=== PATIENT | female | born 1980 | race Caucasian/White ===

== ENCOUNTER 2022-03-08 11:32 | Emergency (ER) | payer BC, OTHER ==
[~2022-03-08] VITALS: Ht 165 cm; Wt 78.0 kg
[2022-03-08 12:11] LABS: CLARITY,URINE CLOUDY; COLOR,URINE YELLOW; GLUCOSE, URINE (UA) NEGATIVE (NEGATIVE); KETONES,URINE 3+ (NEGATIVE); LEUKOCYTE ESTERASE ,URINE TRACE (NEGATIVE); NITRITE,URINE NEGATIVE (NEGATIVE); PROTEIN,URINE 2+ (NEGATIVE)
[2022-03-08 12:13] LABS: BASOPHILS % (AUTO) 0 % (0-10); EOSINOPHILS % (AUTO) 0 % (0-10); HEMATOCRIT 37 % (35-52); HEMOGLOBIN 12.3 g/dL (11.5-16.0); LYMPHOCYTES # (AUTO) 1.7 10^3/uL (1.0-4.0); LYMPHOCYTES % (AUTO) 20 % (12-44); MEAN CORPUSCULAR HEMOGLOBIN 27 pg (25-34); MEAN CORPUSCULAR HGB CONC 34 g/dL (32-36); MEAN CORPUSCULAR VOLUME 80 fL (80-99); MEAN PLATELET VOLUME 10.8 fL (9.0-12.2); MONOCYTES # (AUTO) 0.4 10^3/uL (0.0-1.0); MONOCYTES % (AUTO) 5 % (0-12); NEUTROPHILS # (AUTO) 6.1 10^3/uL (1.8-7.8); NEUTROPHILS % (AUTO) 74 % (42-75); PLATELET COUNT 363 10^3/uL (130-400); WHITE BLOOD COUNT 8.2 10^3/uL (4.3-11.0)
[2022-03-08] MEDS ORDERED: FAMOTIDINE 20MG/2ML IV (PEPCID) IVP ONE (12:15)
[2022-03-08] MEDS ORDERED: NS IV 1000 ML 1,000 ML IV SCH (12:15)
[2022-03-08] MEDS ORDERED: ONDANSETRON 4 MG/2 ML (SDV) Z0FRAN IVP ONE (12:15)
--- NOTE | 2022-03-08 12:28 | ED GI ---
General Chief Complaint: Abdominal/GI Problems Stated Complaint: DIARRHEA; VOMITING Nursing Triage Note: Patient has presented to ER with cc of vomiting, diarrhea, fever, and some cough for the last 3 days. She was seen in urgent care yesterday and told she probally has the flu, she is not better today and came to ER for evaluation. She has taken tylenol and zofran at home for her symptoms. Source of Information: Patient Exam Limitations: No Limitations History of Present Illness Date Seen by Provider: Mar 08, 2022 Time Seen by Provider: 11:50 Initial Comments Patient is a 41-year-old female presents with nausea vomiting and diarrhea with fever and occasional cough for the past 3 days. Patient was evaluated at [facility] yesterday diagnosed with stomach flu. She was provided Zofran, which is helped she has not vomited since last night. Patient reports continued diarrhea and feeling lightheaded and dizzy. Reports only mild abdominal cramping. Denies shortness of breath chills, sweats, urinary frequency urgency or dysuria. No other acute symptoms or complaints. Timing/Duration: 1-3 Hours Severity/Quality: Mild Location: Other Radiation: Shoulder Activities at Onset: Other Modifying Factors: Improves With Other Associated Symptoms: Other Allergies and Home Medications Allergies Coded Allergies: No Known Drug Allergies (Unverified , 03/08/22) Patient Home Medication List Home Medication List Reviewed: Yes Review of Systems Review of Systems Constitutional: see HPI EENTM: See HPI Respiratory: See HPI Cardiovascular: See HPI Gastrointestinal: See HPI Genitourinary: See HPI Musculoskeletal: see HPI Skin: see HPI Psychiatric/Neurological: See HPI Endocrine: See HPI Hematologic/Lymphatic: See HPI All Other Systems Reviewed Negative Unless Noted: No Past Iraowim-Gblnuz-Mmnylx Hx Patient Social History Tobacco Use?: No Use of E-Cig and/or Vaping dev: No Substance use?: No Alcohol Use?: No Physical Exam Vital Signs Vital Signs - First Documented 03/08/22 12:11 Temp 35.7 Pulse 121 Resp 16 Pulse Ox 98 O2 Delivery Room Air Capillary Refill : Height/Weight/BMI Height: '" Weight: lbs. oz. kg; 28.00 BMI Method: General Appearance: WD/WN, no apparent distress HEENT: PERRL/EOMI, normal ENT inspection, pharynx normal Neck: non-tender Respiratory: chest non-tender, lungs clear, normal breath sounds Cardiovascular: normal peripheral pulses, regular rate, rhythm Gastrointestinal: non tender, soft Back: normal inspection, no CVA tenderness Neurologic/Psychiatric: alert, normal mood/affect Skin: normal color Focused Exam Sepsis Stage: Ruled Out Progress/Results/Core Measures Results/Orders Lab Results Laboratory Tests Test 03/08/22 12:02 03/08/22 12:07 Range/Units White Blood Count 8.2 4.3-11.0 10^3/uL Red Blood Count 4.58 3.80-5.11 10^6/uL Hemoglobin 12.3 11.5-16.0 g/dL Hematocrit 37 35-52 % Mean Corpuscular Volume 80 80-99 fL Mean Corpuscular Hemoglobin 27 25-34 pg Mean Corpuscular Hemoglobin Concent 34 32-36 g/dL Red Cell Distribution Width 14.3 10.0-14.5 % Platelet Count 363 130-400 10^3/uL Mean Platelet Volume 10.8 9.0-12.2 fL Immature Granulocyte % (Auto) 0 % Neutrophils (%) (Auto) 74 42-75 % Lymphocytes (%) (Auto) 20 12-44 % Monocytes (%) (Auto) 5 0-12 % Eosinophils (%) (Auto) 0 0-10 % Basophils (%) (Auto) 0 0-10 % Neutrophils # (Auto) 6.1 1.8-7.8 10^3/uL Lymphocytes # (Auto) 1.7 1.0-4.0 10^3/uL Monocytes # (Auto) 0.4 0.0-1.0 10^3/uL Eosinophils # (Auto) 0.0 0.0-0.3 10^3/uL Basophils # (Auto) 0.0 0.0-0.1 10^3/uL Immature Granulocyte # (Auto) 0.0 0.0-0.1 10^3/uL My Orders Orders - LACEY CAMERON DO Cbc With Automated Diff (03/08/22 11:46) Comprehensive Metabolic Panel (03/08/22 11:46) Ua Culture If Indicated (03/08/22 11:46) Lipase (03/08/22 11:46) Ns Iv 1000 Ml (Sodium Chloride 0.9%) (03/08/22 12:15) Ondansetron Injection (Zofran Injectio (03/08/22 12:15) Famotidine Injection (Pepcid Injection) (03/08/22 12:15) Medications Given in ED Current Medications Medications Dose Ordered Sig/Earline Route Start Time Stop Time Status Last Admin Dose Admin Famotidine 20 mg ONCE ONCE IVP 03/08/22 12:15 03/08/22 12:16 DC 03/08/22 12:15 20 MG Ondansetron HCl 4 mg ONCE ONCE IVP 03/08/22 12:15 03/08/22 12:16 DC 03/08/22 12:15 4 MG Vital Signs/I&O 03/08/22 12:11 Temp 35.7 Pulse 121 Resp 16 B/P (MAP) Pulse Ox 98 O2 Delivery Room Air Departure Communication (Admissions) Patient with vomiting and diarrhea consistent with GI illness common in the community. Minimal abdominal pain/tenderness on exam. IV fluids, antiemetics given with symptomatic improvement. Recommendations are supportive care with PCP follow-up. Impression Primary Impression: Nausea vomiting and diarrhea Disposition: HOME, SELF-CARE Condition: Stable Departure-Patient Inst. Decision time for Depature: 12:28 Referrals: ARMOND AMBROSE MD (PCP) Primary Care Physician Patient Instructions: Diarrhea, Adult ED, Nausea and Vomiting, Adult (DC) Add. Discharge Instructions: You were evaluated in the emergency department for abdominal pain, nausea vomiting and diarrhea. Your symptoms are consistent with a stomach flu. Please continue Zofran as needed for nausea and take Imodium OTC as needed for diarrhea. Drink clear liquids only for the next 6 to 12 hours then gradually increase to a soft bland diet as tolerated. Stay home and rest for the next 2 days and follow-up with your PCP if symptoms persist. All discharge instructions reviewed with patient and/or family. Voiced understanding. Work/School Note: Work Release Form Date Seen in the Emergency Department: Mar 08, 2022 Return to Work: Mar 11, 2022 Restrictions: No Restrictions LACEY CAMERON DO Mar 08, 2022 12:28
[2022-03-08 12:29] LABS: BACTERIA,URINE MODERATE /HPF
[2022-03-08 12:30] LABS: BILIRUBIN,URINE 1+ (NEGATIVE)
[2022-03-08 12:39] LABS: BILIRUBIN,TOTAL 0.3 MG/DL (0.1-1.0); BUN/CREATININE RATIO 14; CALCIUM 9.8 MG/DL (8.5-10.1); CARBON DIOXIDE 22 MMOL/L (21-32); CHLORIDE 103 MMOL/L (98-107); CREATININE SERUM 0.72 MG/DL (0.60-1.30); GFR ESTIMATED 108; GLUCOSE 111 MG/DL (70-105); POTASSIUM 3.6 MMOL/L (3.6-5.0); SODIUM 140 MMOL/L (135-145)
[2022-03-08 12:40] LABS: ALANINE AMINOTRANSFERASE 8 U/L (0-55); ALBUMIN 4.6 GM/DL (3.2-4.5); ALKALINE PHOSPHATASE 102 U/L (40-136); LIPASE 34 U/L (8-78); TOTAL PROTEIN 8.2 GM/DL (6.4-8.2)
== END 2022-03-08 12:50 | disposition home or self-care (01) ==
LOC: ER FS 11:34
DX: R11.2 Nausea with vomiting, unspecified (principal); R19.7 Diarrhea, unspecified; R10.9 Unspecified abdominal pain; Z28.310 Unvaccinated for COVID-19
CPT/HCPCS: 36415; 80053; 81000; 83690; 85025; 87088; 99282

== ENCOUNTER → 2022-07-17 | Outpatient (CLI) | payer BC ==
[~2022-07-17] VITALS: Ht 165.1 cm; Wt 77.3 kg
[~2022-07-17] MED LIST: LIDOCAINE 1% INJ 10 ML VIAL INJ ONE
--- NOTE | 2022-07-17 15:53 | Diagnostic Imaging Report ---
INDICATION: Left breast calcifications. PROCEDURE: The patient presents for a stereotactic biopsy. The patient was brought to the stereotactic suite, placed in a chair in the sitting upright position. The left breast was positioned craniocaudal. The cluster of microcalcifications in the superior left breast were stereotactically targeted. All images were viewed on a dedicated workstation. The superior left breast was then prepped and draped in the usual sterile fashion. A small amount of 1% lidocaine was utilized for local anesthesia. An 8-gauge vacuum-assisted stereotactic needle was advanced from a craniocaudal approach and placed per stereotactic coordinates. Additional lidocaine was administered. Next, 4 core samples were obtained with an 8 gauge vacuum-assisted device. Specimen radiograph was obtained demonstrating numerous microcalcifications within the sample labeled 2, 3 and 4. A marker clip was then deployed. The needle was removed and hemostasis was obtained using manual compression. Patient tolerated the procedure well. 2-D post procedure CC and ML mammogram were obtained demonstrating clip placement in the superior left breast. IMPRESSION: Successful stereotactic biopsy of left breast calcifications, utilizing the vacuum-assisted device. Pathology results are currently pending. Dictated by: Dictated on workstation # [id number]
== END ==
LOC: RAD 13:15
PROVIDERS: ATTEND Registered Nurse Emergency
DX: R92.1 Mammographic calcification found on diagnostic imaging of breast (principal)
CPT/HCPCS: 19081

== ENCOUNTER → 2022-07-24 | Outpatient (CLI) | payer BC | LOC: LABNPT 14:48 | PROVIDERS: ATTEND Registered Nurse Emergency | DX: Z01.419 Encounter for gynecological examination (general) (routine) without abnormal findings (principal) | CPT/HCPCS: 87210 ==

== ENCOUNTER 2022-08-17 05:30 | Outpatient (CLI) | payer BC ==
[~2022-08-17] VITALS: Ht 165 cm; Wt 77.7 kg
[2022-08-17] MEDS ORDERED: MULT-195 PO (15:41)
[2022-08-17] MEDS ORDERED: CETI10TA49 PO (15:41)
[2022-08-17] MEDS ORDERED: HYDR-700 PO (15:41)
[2022-08-17] MEDS ORDERED: ESCI20TA39 PO (15:41)
== END 2022-08-17 15:55 | disposition home or self-care (01) ==
LOC: PREOP 05:30
PROVIDERS: ATTEND Surgery
DX: Z01.818 Encounter for other preprocedural examination (principal)

== ENCOUNTER 2022-08-23 07:06 | Day surgery (SDC) | payer BC ==
[~2022-08-23] VITALS: Ht 165 cm; Wt 77.7 kg
[2022-08-23] VITALS (8 sets, daily range): BP systolic 141–150; BP diastolic 85–103
[~2022-08-23 07:06] MED LIST changes: +CETI10TA49 PO; +ESCI20TA39 PO; +HYDR-700 PO; -LIDOCAINE 1% INJ 10 ML VIAL INJ ONE; +MULT-195 PO
[2022-08-23] MEDS ORDERED: LACTATED RINGERS 1,000 ML IV PRN (07:45)
[2022-08-23] MEDS ORDERED: LIDOCAINE 1% INJ 10 ML VIAL INJ ONE ×2 (08:15→13:30)
[2022-08-23] MEDS ORDERED: MIDAZOLAM 2 MG/2 ML (VERSED) VIAL ONE (09:16)
[2022-08-23] MEDS ORDERED: fentaNYL INJ 100 MCG/2 ML AMP ONE (09:16)
--- NOTE | 2022-08-23 09:32 | Progress Note-Pre Operative ---
Pre-Operative Progress Note Date of Available H&P: Aug 23, 2022 Date H&P Reviewed: Aug 23, 2022 Time H&P Reviewed: 09:32 Pre-Operative Diagnosis: Abnornmal left breast mammogram FLORA FUENTES DO Aug 23, 2022 09:32
[2022-08-23] MEDS ORDERED: proPOfol 200 MG/20 ML (DIPRIVAN) VIAL IV ONE (10:41)
[2022-08-23] MEDS ORDERED: LIDOCAINE PF 2% 5 ML (XYLOCAINE) VIAL ONE (10:41)
[2022-08-23] MEDS ORDERED: ONDANSETRON 4 MG/2 ML (SDV) Z0FRAN ONE (10:41)
[2022-08-23] MEDS ORDERED: SEVOFLURANE (ULTANE) 15 ML INHAL SOLN ONE (10:41)
--- NOTE | 2022-08-23 10:43 | Diagnostic Imaging Report ---
Indication: Left breast atypical hyperplasia. Patient presents for hookwire localization prior to lumpectomy. Patient is brought to the mammography suite placed in the chair in a sitting upright position. Left breast was positioned craniocaudal. The marker clip from prior stereotactic biopsy was localized. A small amount of 1% lidocaine was utilized for local anesthesia. Needle localization needle was advanced from craniocaudal approach and placed just beyond the marker clip in the upper central left breast. Hookwire was then deployed and the needle was removed. The wire was affixed to the patient's skin. Postprocedure 2-D CC and ML mammography was performed demonstrating the localizer hookwire adjacent to the marker clip. Patient tolerated the procedure well and was sent to same day surgery in satisfactory condition. IMPRESSION: Successful stereotactic hookwire localization of the marker clip in the upper central left breast. Dictated by: Dictated on workstation # [id number]
--- NOTE | 2022-08-23 11:00 | Diagnostic Imaging Report ---
INDICATION: Left breast lumpectomy. IMPRESSION: A specimen radiograph was obtained. The hookwire and the marker clip are located within the specimen. The marker clip is located at coordinates F7/8. Dictated by: Dictated on workstation # [id number]
--- NOTE | 2022-08-23 11:03 | Anesthesia-General Post-Op ---
General Patient Condition Mental Status/LOC: Same as Preop Cardiovascular: Satisfactory Nausea/Vomiting: Absent Respiratory: Satisfactory Pain: Controlled Complications: Absent Post Op Complications Complications None Follow Up Care/Instructions Patient Instructions None needed. Anesthesia/Patient Condition Patient Condition Patient is doing well, no complaints, stable vital signs, no apparent adverse anesthesia problems. No complications reported per nursing. VISHAL BRAVO CRNA Aug 23, 2022 11:03
[2022-08-23] MEDS ORDERED: fentaNYL INJ 100 MCG/2 ML AMP IVP ONE (11:15)
[2022-08-23] MEDS ORDERED: ONDANSETRON 4 MG/2 ML (SDV) Z0FRAN IVP PRN (11:15)
[2022-08-23] MEDS ORDERED: HYDROmorphone 2 MG/ML VIAL (DILAUDID) IV ONE (11:15)
--- NOTE | 2022-08-28 00:28 | OPERATIVE REPORT ---
DATE OF SERVICE: 08/23/2022 PREOPERATIVE DIAGNOSIS: Left breast abnormal mammogram showing calcifications. Stereotactic biopsy showed atypical cells. POSTOPERATIVE DIAGNOSIS: Left breast abnormal mammogram showing calcifications. Stereotactic biopsy showed atypical cells. SURGEON: Cam Fuentes DO ANESTHESIA: MAC. PROCEDURE: Wide local excision of left breast. INDICATIONS FOR PROCEDURE: The patient is a 41-year-old female who presented to the clinic with abnormal mammogram. Stereotactic biopsy showed atypical cells. Case was discussed with the patient. Informed consent was obtained. DESCRIPTION OF OPERATIVE PROCEDURE: The patient was prepped and draped in the usual sterile manner. The patient underwent hookwire placement prior to the procedure. A curvilinear incision was made about the area of the abnormality. After this was done, the tissue was dissected down using cautery. A wide excision was performed with about 10 cm dimension mass excised. This was then sent to radiology to confirm that the hook wire and clip was in place. Next, hemostasis was achieved. Prior to the specimen being sent off, it was labeled using a 2-0 silk, one long with anterior, two short was medial and one short was cephalad. After hemostasis was achieved, the wound was closed using 3-0 Vicryl and 4-0 Monocryl. Pressure dressing was then placed. There were no complications. Job ID: [id number] DocumentID: [id number] Dictated Date: 08/27/2022 18:04:30 [employer] Date: 08/28/2022 00:26:00 Dictated By: CAM FUENTES DO
== END 2022-08-23 12:43 | disposition home or self-care (01) ==
LOC: RAD 07:06
PROVIDERS: ATTEND Surgery
DX: N62 Hypertrophy of breast (principal); N64.89 Other specified disorders of breast; R92.0 Mammographic microcalcification found on diagnostic imaging of breast; Z87.891 Personal history of nicotine dependence; Z28.310 Unvaccinated for COVID-19
CPT/HCPCS: 76098; 84703; 87081; 88307

== ENCOUNTER → 2022-10-09 | Outpatient (CLI) | payer BC ==
[~2022-10-09] MED LIST changes: +CATHETER FLUSH 10 ML SYR IV PRN; +HOLD METFORMIN - RECEIVED CONTRAST 20 ML VIAL IV SCH; +IOHEXOL 350 MG/ML 100 ML (OMNIPAQUE 350) VIAL IV ONE; +NS 100 ML (IVPB) BAG IV ONE
--- NOTE | 2022-10-09 12:09 | Diagnostic Imaging Report ---
CT ABDOMEN/PELVIS W TECHNIQUE: Multiple contiguous axial images were obtained through the abdomen and pelvis after administration of intravenous contrast. All CT scans use one or more of the following dose optimizing techniques: automated exposure control, MA and/or KvP adjustment based on patient size and exam type or iterative reconstruction. INDICATION: Fever and left-sided abdominal pain. COMPARISON: None available. FINDINGS: Lower chest: The lung bases are clear. No pericardial or pleural effusion. Peritoneum: No free intraperitoneal air or fluid. Liver and biliary system: Diffuse low-attenuation liver is indicative of steatosis. No focal hepatic lesion. Gallbladder is normal. No biliary duct dilatation. Spleen and Pancreas: Spleen is normal. The pancreas enhances normally without mass lesion or peripancreatic inflammatory changes. Adrenals: Normal. tract: The kidneys enhance normally without suspicious mass or obstruction. Urinary bladder is distended without wall thickening. Uterus and ovaries are normal in appearance. GI tract: Stomach has fluid and no wall thickening. No bowel obstruction. No pericolonic inflammatory changes. Normal appendix. Vasculature and Lymph nodes: Normal caliber aorta. No abdominal or pelvic lymphadenopathy. Musculoskeletal: No concerning osseous lesion. Focally advanced degenerative disc disease at L2-L3. IMPRESSION: 1. No acute obstructive or inflammatory process. Dictated by: Dictated on workstation # [id number]
== END ==
LOC: RAD FS 11:24
PROVIDERS: ATTEND Registered Nurse Emergency
DX: R50.9 Fever, unspecified (principal); R10.12 Left upper quadrant pain; R11.2 Nausea with vomiting, unspecified; R10.32 Left lower quadrant pain
CPT/HCPCS: 74177; Q9967

== ENCOUNTER 2022-10-25 16:24 | Emergency (ER) | payer BC ==
[~2022-10-25] VITALS: Ht 165 cm; Wt 76.0 kg
[~2022-10-25 16:24] MED LIST changes: -CATHETER FLUSH 10 ML SYR IV PRN; -HOLD METFORMIN - RECEIVED CONTRAST 20 ML VIAL IV SCH; -IOHEXOL 350 MG/ML 100 ML (OMNIPAQUE 350) VIAL IV ONE; -NS 100 ML (IVPB) BAG IV ONE
[2022-10-25] MEDS ORDERED: ONDANSETRON INJECTION 4 MG/2 ML (SDV) IVP ONE (16:45)
[2022-10-25] MEDS ORDERED: diphenhydrAMINE INJ 50 MG/ML VIAL IVP ONE (16:45)
[2022-10-25] MEDS ORDERED: NS IV 1000 ML 1,000 ML IV SCH (16:45)
[2022-10-25 16:46] VITALS: BP 192/99
--- NOTE | 2022-10-25 16:47 | ED GI ---
General Stated Complaint: COUGH,FEVER,SOA,VOMITING,HOT/COLD "FLASHES" Source of Information: Patient Exam Limitations: No Limitations History of Present Illness Date Seen by Provider: Oct 25, 2022 Time Seen by Provider: 16:35 Initial Comments 41-year-old female presents to the emergency department today for nausea and vomiting. Symptoms present for about 3 days. About 2 weeks ago she presented to the walk-in clinic for abdominal pain. CT scan of the abdomen pelvis with contrast was done at that time which was negative. I have reviewed these images and radiology read. She states she is continuing to have bilateral lower abdominal cramping without radiation. No aggravating or alleviating factors. Normal bowel movements and urine output. 3 days ago she started to have nausea with significant vomiting. Emesis is nonbloody and nonbilious. She denies fev ers but has had chills. All other systems reviewed and negative except documented per HPI. Voice recognition software was used to help create this chart Allergies and Home Medications Allergies Coded Allergies: No Known Drug Allergies (Unverified , 08/17/22) Patient Home Medication List Home Medication List Reviewed: Yes Cetirizine HCl (Zyrtec) 10 Mg Tablet, 10 MG PO DAILY, (Reported) Entered as Reported by: CAS AMBROSE on 08/17/22 1541 Escitalopram Oxalate (Escitalopram Oxalate) 20 Mg Tablet, 20 MG PO DAILY, (Reported) Entered as Reported by: CAS AMBROSE on 08/17/22 1541 Hydroxyzine HCl (Hydroxyzine HCl) 25 Mg Tablet, 25 MG PO TID, (Reported) Entered as Reported by: CAS AMBROSE on 08/17/22 1541 Multivitamin W-Minerals/Lutein (A Thru Z Advanced Formula Tab) Unknown Strength Tablet, Unknown Dose PO, (Reported) Entered as Reported by: CAS AMBROSE on 08/17/22 1541 Review of Systems Review of Systems Constitutional: see HPI Past Soxlakh-Rxkpoc-Cmjzlt Hx Patient Social History Tobacco Use?: No Use of E-Cig and/or Vaping dev: No Substance use?: No Alcohol Use?: No Seasonal Allergies Seasonal Allergies: Yes Past Medical History Surgeries: No Respiratory: No Currently Using CPAP: No Currently Using BIPAP: No Cardiac: No Neurological: Yes Headaches /Migraines Genitourinary: No Gastrointestinal: No Musculoskeletal: No Endocrine: No HEENT: No Cancer: No Psychosocial: Yes Anxiety, Depression Integumentary: No Blood Disorders: Yes (ANEMIA) Physical Exam Vital Signs Vital Signs - First Documented 10/25/22 16:46 Pulse 64 Resp 16 B/P (MAP) 192/99 (130) Pulse Ox 99 O2 Delivery Room Air Capillary Refill : Height/Weight/BMI Height: '" Weight: lbs. oz. kg; 28.53 BMI Method: General Appearance: WD/WN, no apparent distress HEENT: normal ENT inspection, pharynx normal, other (The patient is a edentulous) Neck: non-tender, full range of motion, supple, normal inspection Respiratory: chest non-tender, lungs clear, normal breath sounds, no respiratory distress, no accessory muscle use Cardiovascular: no murmur, tachycardia Gastrointestinal: normal bowel sounds, soft, no organomegaly, tenderness (Mild tenderness in bilateral lower quadrants. No rebound or guarding. No mass o rganomegaly. No skin changes.) Extremities: normal range of motion, non-tender, normal inspection, no pedal edema, no calf tenderness Neurologic/Psychiatric: alert, normal mood/affect, oriented x 3 Skin: normal color, warm/dry Progress/Results/Core Measures Results/Orders Lab Results Laboratory Tests Test 10/25/22 16:40 10/25/22 16:48 Range/Units Urine Color YELLOW Urine Clarity CLEAR Urine pH 8.0 5-9 Urine Specific [place] 1.020 1.016-1.022 Urine Protein 1+ H NEGATIVE Urine Glucose (UA) NEGATIVE NEGATIVE Urine Ketones TRACE H NEGATIVE Urine Nitrite NEGATIVE NEGATIVE Urine Bilirubin NEGATIVE NEGATIVE Urine Urobilinogen 0.2 < = 1.0 MG/DL Urine Leukocyte Esterase NEGATIVE NEGATIVE Urine RBC (Auto) NEGATIVE NEGATIVE Urine RBC NONE /HPF Urine WBC 0-2 /HPF Urine Squamous Epithelial Cells 0-2 /HPF Urine Crystals NONE /LPF Urine Bacteria NEGATIVE /HPF Urine Casts NONE /LPF Urine Mucus NEGATIVE /LPF Urine Culture Indicated NO White Blood Count 11.7 H 4.3-11.0 10^3/uL Red Blood Count 4.64 3.80-5.11 10^6/uL Hemoglobin 13.7 11.5-16.0 g/dL Hematocrit 40 35-52 % Mean Corpuscular Volume 87 80-99 fL Mean Corpuscular Hemoglobin 30 25-34 pg Mean Corpuscular Hemoglobin Concent 34 32-36 g/dL Red Cell Distribution Width 13.6 10.0-14.5 % Platelet Count 387 130-400 10^3/uL Mean Platelet Volume 10.5 9.0-12.2 fL Immature Granulocyte % (Auto) 0 % Neutrophils (%) (Auto) 91 H 42-75 % Lymphocytes (%) (Auto) 6 L 12-44 % Monocytes (%) (Auto) 2 0-12 % Eosinophils (%) (Auto) 0 0-10 % Basophils (%) (Auto) 0 0-10 % Neutrophils # (Auto) 10.6 H 1.8-7.8 10^3/uL Lymphocytes # (Auto) 0.8 L 1.0-4.0 10^3/uL Monocytes # (Auto) 0.3 0.0-1.0 10^3/uL Eosinophils # (Auto) 0.0 0.0-0.3 10^3/uL Basophils # (Auto) 0.0 0.0-0.1 10^3/uL Immature Granulocyte # (Auto) 0.0 0.0-0.1 10^3/uL Sodium Level 135 135-145 MMOL/L Potassium Level 3.5 L 3.6-5.0 MMOL/L Chloride Level 101 98-107 MMOL/L Carbon Dioxide Level 18 L 21-32 MMOL/L Anion Gap 16 H 5-14 MMOL/L Blood Urea Nitrogen 5 L 7-18 MG/DL Creatinine 0.66 0.60-1.30 MG/DL Estimat Glomerular Filtration Rate 114 BUN/Creatinine Ratio 8 Glucose Level 166 H 70-105 MG/DL Calcium Level 9.7 8.5-10.1 MG/DL Corrected Calcium 8.5-10.1 MG/DL Total Bilirubin 0.5 0.1-1.0 MG/DL Aspartate Amino Transf (AST/SGOT) 22 5-34 U/L Alanine Aminotransferase (ALT/SGPT) 16 0-55 U/L Alkaline Phosphatase 114 40-136 U/L Total Protein 7.7 6.4-8.2 GM/DL Albumin 4.6 H 3.2-4.5 GM/DL My Orders Orders - SOFIE MARTIN DO Cbc With Automated Diff (10/25/22 16:37) Comprehensive Metabolic Panel (10/25/22 16:37) Ua Culture If Indicated (10/25/22 16:37) Urine Bedside (10/25/22 16:39) Ns Iv 1000 Ml (Ns Iv 1000 Ml) (10/25/22 16:45) Ondansetron Injection (Ondansetron Inj (10/25/22 16:45) Diphenhydramine Injection (Diphenhydram (10/25/22 16:45) Manual Differential (10/25/22 16:48) Ct Abdomen/Pelvis W (10/25/22 17:11) Iohexol Injection (Omnipaque 350 Mg/Ml 1 (10/25/22 17:30) Received Contrast (Hold Metformin- Contr (10/25/22 17:30) Ns (Ivpb) 100 Ml (Sodium Chloride 0.9% 1 (10/25/22 17:30) Medications Given in ED Current Medications Medications Dose Ordered Sig/Earline Route Start Time Stop Time Status Last Admin Dose Admin Diphenhydramine HCl 50 mg ONCE ONCE IVP 10/25/22 16:45 10/25/22 16:46 DC 10/25/22 17:02 50 MG Iohexol 100 ml ONCE ONCE IV 10/25/22 17:30 10/25/22 17:31 DC 10/25/22 17:32 80 ML Ondansetron HCl 8 mg ONCE ONCE IVP 10/25/22 16:45 10/25/22 16:46 DC 10/25/22 17:02 8 MG Sodium Chloride 100 ml ONCE ONCE IV 10/25/22 17:30 10/25/22 17:31 DC 10/25/22 17:31 100 ML Vital Signs/I&O 10/25/22 16:46 Pulse 64 Resp 16 B/P (MAP) 192/99 (130) Pulse Ox 99 O2 Delivery Room Air Departure Communication (Admissions) Patient is hemodynamically stable. She did have some significant bilateral lower abdominal tenderness that seem to favor the right side. Labs were obtained showing a slight leukocytosis with a left shift. For that reason I opted to go ahead with a CT scan with IV contrast to be repeated to ensure we did not miss an early appendicitis. This is negative for any acute emergent abnormalities, some slight free fluid in the pelvis and some endometrial irregularities for which the radiologist recommended possible nonemergent endometrial ultrasound. He favored a likely nabothian cyst. It is unclear the cause of her abdominal pain. It does seem to be a GI bug going around and her vomiting may caused by a viral type illness. This did quell with the Zofran and Benadryl provided here and she had no further vomiting. She tolerated some fluids without emesis. She be discharged home in stable condition. Her chemistry was reviewed and negative for any acute abnormality. Urine does not show any evidence for infection. She was given IV fluids Impression Primary Impression: Nausea and vomiting Qualified Codes: R11.2 - Nausea with vomiting, unspecified Additional Impression: Lower abdominal pain Disposition: HOME, SELF-CARE Condition: Stable Departure-Patient Inst. Referrals: ARMOND AMBROSE MD (PCP/Family) Primary Care Physician Patient Instructions: Abdominal Pain, Adult ED, Nausea and Vomiting, Adult ED Add. Discharge Instructions: You are seen in the emergency department for abdominal pain nausea and vomiting. Repeat CT scan did not show any acute abnormalities that would explain your pain. There was a slight irregularity of the lining of your uterus. Recommend you follow-up with your primary doctor for possible ultrasound. Regarding your nausea and vomiting, use the provided medications as needed. Add 50 mg Benadryl every 6 hours as needed. Increase your fluids at home with small sips of fluids every 15 to 20 minutes. Follow-up with your primary doctor should your symptoms persist. Return to the emergency department if your symptoms change in any way concerning to you. SOFIE MARTIN DO Oct 25, 2022 16:47
[2022-10-25 16:48] LABS: BILIRUBIN,URINE NEGATIVE (NEGATIVE); CLARITY,URINE CLEAR; COLOR,URINE YELLOW; GLUCOSE, URINE (UA) NEGATIVE (NEGATIVE); KETONES,URINE TRACE (NEGATIVE); LEUKOCYTE ESTERASE ,URINE NEGATIVE (NEGATIVE); NITRITE,URINE NEGATIVE (NEGATIVE); PROTEIN,URINE 1+ (NEGATIVE)
[2022-10-25 16:57] LABS: BASOPHILS % (AUTO) 0 % (0-10); EOSINOPHILS % (AUTO) 0 % (0-10); HEMATOCRIT 40 % (35-52); HEMOGLOBIN 13.7 g/dL (11.5-16.0); LYMPHOCYTES # (AUTO) 0.8 10^3/uL (1.0-4.0); LYMPHOCYTES % (AUTO) 6 % (12-44); MEAN CORPUSCULAR HEMOGLOBIN 30 pg (25-34); MEAN CORPUSCULAR HGB CONC 34 g/dL (32-36); MEAN CORPUSCULAR VOLUME 87 fL (80-99); MEAN PLATELET VOLUME 10.5 fL (9.0-12.2); MONOCYTES # (AUTO) 0.3 10^3/uL (0.0-1.0); MONOCYTES % (AUTO) 2 % (0-12); NEUTROPHILS # (AUTO) 10.6 10^3/uL (1.8-7.8); NEUTROPHILS % (AUTO) 91 % (42-75); PLATELET COUNT 387 10^3/uL (130-400); WHITE BLOOD COUNT 11.7 10^3/uL (4.3-11.0)
[2022-10-25 17:01] LABS: BACTERIA,URINE NEGATIVE /HPF; SQUAMOUS EPITHELIAL CELL,UR 0-2 /HPF; WBC,URINE 0-2 /HPF
[2022-10-25 17:16] LABS: ALANINE AMINOTRANSFERASE 16 U/L (0-55); ALKALINE PHOSPHATASE 114 U/L (40-136); BILIRUBIN,TOTAL 0.5 MG/DL (0.1-1.0); BUN/CREATININE RATIO 8; CALCIUM 9.7 MG/DL (8.5-10.1); CARBON DIOXIDE 18 MMOL/L (21-32); CHLORIDE 101 MMOL/L (98-107); CREATININE SERUM 0.66 MG/DL (0.60-1.30); GFR ESTIMATED 114; GLUCOSE 166 MG/DL (70-105); POTASSIUM 3.5 MMOL/L (3.6-5.0); SODIUM 135 MMOL/L (135-145); TOTAL PROTEIN 7.7 GM/DL (6.4-8.2)
[2022-10-25 17:17] LABS: ALBUMIN 4.6 GM/DL (3.2-4.5)
[2022-10-25] MEDS ORDERED: IOHEXOL 350 MG/ML 100 ML (OMNIPAQUE 350) VIAL IV ONE (17:30)
[2022-10-25] MEDS ORDERED: HOLD METFORMIN - RECEIVED CONTRAST 20 ML VIAL IV SCH (17:30)
[2022-10-25] MEDS ORDERED: NS 100 ML (IVPB) BAG IV ONE (17:30)
--- NOTE | 2022-10-25 18:03 | Diagnostic Imaging Report ---
PROCEDURE: CT abdomen and pelvis with contrast. TECHNIQUE: Multiple contiguous axial images were obtained through the abdomen and pelvis after administration of intravenous contrast. Auto Exposure Controls were utilized during the CT exam to meet ALARA standards for radiation dose reduction. All CT scans use one or more of the following dose optimizing techniques: automated exposure control, MA and/or KvP adjustment based on patient size and exam type or iterative reconstruction. INDICATION: Right lower abdominal pain, nausea COMPARISON: 10/09/2022 FINDINGS: Visualized lung bases are clear. The liver and spleen are unremarkable. The adrenal glands are unremarkable. The pancreas is unremarkable. The gallbladder is unremarkable. Bilateral kidneys and ureters are unremarkable. No aneurysmal dilatation of the abdominal aorta. The appendix is unremarkable. The urinary bladder is unremarkable. The endometrial cavity appears slightly irregular, particularly inferiorly. Adnexal regions are unremarkable. No bowel obstruction or pneumatosis. Small amount of fluid within the lower pelvis, slightly increased since the prior examination. No significant adenopathy. No free air. Scattered osseous degenerative changes without acute osseous abnormality. No significant inflammatory stranding is identified within the abdomen or pelvis. IMPRESSION: Irregularity involving the endometrial cavity within the lower uterine segment. Recommend a nonemergent pelvic ultrasound for further evaluation. This could simply relate to a nabothian cyst. Small amount of free fluid within the lower pelvis, slightly increased since the prior examination. Additional findings as described above. The appendix is unremarkable. Dictated by: Dictated on workstation # [id number]
[2022-10-25] MEDS ORDERED: ONDA8TAB13 SL (18:11)
[2022-10-25 20:13] LABS: BAND NEUTROPHILS 3 %; BASOPHILS % (MANUAL) 0 %; EOSINOPHILS % (MANUAL) 0 %; LYMPHOCYTES % (MANUAL) 6 %; MONOCYTES % (MANUAL) 2 %; NEUTROPHILS % (MANUAL) 89 %; PLATELET ESTIMATE NORMAL; RBC MORPH NORMAL
== END 2022-10-25 18:15 | disposition home or self-care (01) ==
LOC: EDUNIT# 16:24 → ER FS 16:26
DX: R11.2 Nausea with vomiting, unspecified (principal); R10.31 Right lower quadrant pain; R10.32 Left lower quadrant pain; D72.829 Elevated white blood cell count, unspecified
CPT/HCPCS: 36415; 74177; 80053; 81000; 84703; 85007; 85027; Q9967